=== PATIENT | male | born 1970 | race Caucasian/White ===

== ENCOUNTER 2018-02-11 13:30 | Inpatient (IN) | payer OTHER ==
[~2018-02-11] VITALS: Ht 182.9 cm; Wt 98.8 kg
[2018-02-11 13:43] VITALS: BP 126/77
[2018-02-11 14:20] LABS: HEMATOCRIT 47.7 % (42.0-52.0); HEMOGLOBIN 16.2 gm/dL (14.0-18.0); MCH 30.2 pg (26.0-34.0); MCV 88.6 fL (80.0-100.0); MPV 7.6 fl. (7.2-11.1); NUCLEATED RBCS 0 /100WBC; PLATELET COUNT* 245 thou/uL (150-400); RBC 5.38 mil/uL (4.50-6.00); RDW-CV 13.8 % (10.5-14.5); WBC 15.1 thou/uL (4.0-11.0)
[2018-02-11 14:26] LABS: ANION GAP 14 mmol/L (7-16); BUN 15 mg/dL (7-18); CALCIUM 8.7 mg/dL (8.5-10.1); CHLORIDE 100 mmol/L (98-107); CO2 25 mmol/L (21-32); CREATININE 1.1 mg/dL (0.6-1.3); GLUCOSE 122 mg/dL (70-99); POTASSIUM 3.5 mmol/L (3.5-5.1); SODIUM 139 mmol/L (136-145)
[2018-02-11 14:38] LABS: ABSOLUTE LYMPHOCYTES 2.1 thou/uL (0.8-5.3); ABSOLUTE MONOCYTES 0.8 thou/uL (0.0-1.2); ABSOLUTE NEUTROPHILS 12.2 thou/uL (1.6-8.1); ALKALINE PHOSPHATASE 86 U/L (46-116); ATYPICAL LYMPHS 6 %; SGOT 20 U/L (15-37); SGPT 73 U/L (30-65); TOTAL BILIRUBIN 0.8 mg/dL (<0.1-1.0); TOTAL PROTEIN 7.7 g/dL (6.4-8.2); TROPONIN-I LEVEL <0.06 ng/mL (<0.06)
[2018-02-11 15:31] LABS: INFLUENZA A ANTIGEN None Detected (None Detect); INFLUENZA B ANTIGEN None Detected (None Detect)
[2018-02-11 17:15] VITALS: BP 139/88
[2018-02-11 17:30] VITALS: BP 146/73
[2018-02-11 19:50] VITALS: BP 121/77
[2018-02-12 04:16] LABS: ABSOLUTE LYMPHOCYTES 0.7 thou/uL (0.8-5.3); ABSOLUTE MONOCYTES 0.8 thou/uL (0.0-1.2); ABSOLUTE NEUTROPHILS 8.2 thou/uL (1.6-8.1); BASOPHILS 0.1 %; HEMATOCRIT 43.4 % (42.0-52.0); HEMOGLOBIN 14.8 gm/dL (14.0-18.0); LYMPHOCYTES 7.4 %; MCH 30.4 pg (26.0-34.0); MCHC 34.1 g/dL (28.0-37.0); MCV 89.3 fL (80.0-100.0); MONOCYTES 8.1 %; MPV 7.8 fl. (7.2-11.1); NUCLEATED RBCS 0 /100WBC; PLATELET COUNT* 239 thou/uL (150-400); POLYS 84.4 %; RBC 4.86 mil/uL (4.50-6.00); RDW-CV 13.6 % (10.5-14.5); WBC 9.7 thou/uL (4.0-11.0)
[2018-02-12 04:33] LABS: CALCIUM 8.5 mg/dL (8.5-10.1)
[2018-02-12 04:52] LABS: POTASSIUM 4.6 mmol/L (3.5-5.1)
[2018-02-12 08:00] VITALS: BP 130/85
--- NOTE | 2018-02-12 10:07 | EKG ---
[place] [address] ELECTROCARDIOGRAM REPORT Name: MARTIN VELEZ Room: [address] ADM IN .R.#: [id number] Admission: 02/11/18 Attend Phys: Chantel Beard MD Discharge: Date of : 66 Report #: [id number] THIS REPORT FOR: //name// [facility] ED Test Date: 2018-02-11 Test Time: 13:44:41 Pat Name: MARTIN VELEZ Department: Room: [address] Gender: M [employer] Developer: [place] : 1970 Requested By: Timbo Vasquez Order Number: [id number] Anabelle MD: Bandar Retana Measurements Intervals [place] Rate: 88 P: 27 ID: [id number] QRS: 34 QRSD: 85 T: -1 QT: 349 QTc: 423 Interpretive Statements Sinus rhythm Multiple ventricular premature complexes Abnormal R-wave progression, late transition Borderline T abnormalities, inferior leads No previous ECG available for comparison Electronically Signed On 02-12-2018 10:07:38 DELIMER by Bandar Retana [email or web address] <ELECTRONICALLY SIGNED> By: Bandar Retana MD, [facility] 02/12/18 1007 1344 1344 Bandar Retana MD, FAC /EPI
[2018-02-12] MEDS ORDERED: AZITHROMYCIN 2250 MG PO (12:50)
[2018-02-12] MEDS ORDERED: AUGMENTIN 875-1 EACH PO (12:50)
[2018-02-12] MEDS ORDERED: PREDNISONE 20 M20 MG PO (12:51)
[2018-02-12] MEDS ORDERED: VENTOLIN HFA INH8 GM INH (12:53)
[2018-02-12 13:44] VITALS: BP 130/85
== END 2018-02-12 15:29 | disposition home or self-care (01) | DRG 177 ==
LOC: M.ERS 13:30 → M.TBA-ER 14:56 → M.ORTHSURG 17:25
PROVIDERS: Physician Assistant; ADMIT Family Medicine
DX: J15.6 Pneumonia due to other Gram-negative bacteria (principal); J96.00 Acute respiratory failure, unspecified whether with hypoxia or hypercapnia; J06.9 Acute upper respiratory infection, unspecified; Z79.899 Other long term (current) drug therapy; J01.90 Acute sinusitis, unspecified

== ENCOUNTER → 2020-02-05 | Outpatient (CLI) | payer OTHER ==
[~2020-02-05] MED LIST: AUGMENTIN 875-1 EACH PO; AZITHROMYCIN 2250 MG PO; PREDNISONE 20 M20 MG PO; VENTOLIN HFA INH8 GM INH
== END ==
LOC: M.MRI 14:15
PROVIDERS: ATTEND Orthopaedic Surgery
DX: S83.241A Other tear of medial meniscus, current injury, right knee, initial encounter (principal); M23.306 Other meniscus derangements, unspecified meniscus, right knee; M71.21 Synovial cyst of popliteal space [Baker], right knee; X58.XXXA Exposure to other specified factors, initial encounter; Y93.89 Activity, other specified; Y92.89 Other specified places as the place of occurrence of the external cause; Y99.8 Other external cause status

== ENCOUNTER → 2020-12-19 | Outpatient (CLI) | payer OTHER | LOC: M.ULTRA 10:05 | PROVIDERS: ATTEND Family Medicine | DX: M79.605 Pain in left leg (principal) ==